=== PATIENT | male | born 1990 | race Two or more races ===

== ENCOUNTER 2025-09-12 16:36 | Inpatient (IN) | payer MEDICAID, SELFPAY ==
[2025-09-12 16:37] VITALS: BMI 36.5
[2025-09-12 16:48] VITALS: BP 155/82; PULSE 86; RESP 18; TEMP 36.9; O2SAT 99
--- NOTE | 2025-09-12 16:56 | XR_ITS ---
Examination: CTA carotids with intravenous contrast CTA brain, head with intravenous contrast. 2-D sagittal, coronal reconstructions. 3-D reconstructions. Exam date and time: September 12, 2025, 1839 hours INDICATIONS: Onset double vision beginning 3 days ago CTDI: vol (mGy) 31.2 DLP: (mGycm) 465 Technique: Multiple CTA axial brain, head carotid images post intravenous contrast injection 75 cc, [id number]. 2-D sagittal, coronal reconstructions. 3-D reconstructions, 3-D post processing including vascular maximum intensity projection images. Low dose protocols were performed. One or more of the following dose reduction techniques were used; automated exposure control, adjustment of the mA and/or KV according to patient size, use of iterative reconstruction technique. Findings: No common carotid carotid bifurcation or significant internal carotid artery stenoses Codominant vertebral arteries in the neck with no critical stenoses No cerebral large vessel arterial occlusions, thrombus, dissection or cerebral aneurysm IMPRESSION: No significant neck arterial stenoses No cerebral arterial occlusions or thrombus or cerebral aneurysms Consider brain MR I MRA without contrast follow-up
--- NOTE | 2025-09-12 16:57 | PD.EDRME ---
Rapid Medical Screening Exam [facility] Arrival date/time: 09/12/25 16:36 35-year-old male with no known medical history presents to the emergency room with a chief complaint of double vision x 3 days. Patient states when he closes one of his eyes his vision is normal but when they are both open his double vision does not go away. I have greeted and performed a focused initial assessment of this patient. A comprehensive ED assessment and evaluation of the patient, analysis of all test results, and completion of the medical decision making process will be conducted by additional ED providers. Chief Complaint: Eye Problems Vital signs: Vital Signs Temperature 98.5 F 09/12/25 16:48 Pulse Rate 86 09/12/25 16:48 Respiratory Rate 18 09/12/25 16:48 Blood Pressure 155/82 H 09/12/25 16:48 Pulse Oximetry (%) 99 09/12/25 16:48 Oxygen Delivery Method Room Air 09/12/25 16:48 Vital signs reviewed by provider: Yes Exam: Pupils are PERRLA EOMs are intact Patient is a GCS 15 alert and oriented x 3 Clinical Impression: CVA/TIA/
[2025-09-12 17:23] LABS: Glucose Estimated Average 114 mg/dL (80-131); Hemoglobin A1C 5.6 % Hgb (4.8-6.0)
[2025-09-12 17:27] VITALS: BP 160/96; PULSE 97; RESP 30; TEMP 36.7; O2SAT 97
[2025-09-12 17:30] LABS: Alanine Aminotransferase 55 U/L (10-49); Albumin, Serum 5.0 gm/dL (3.5-5.0); Albumin/Globulin Ratio 2.5 (1.2-2.2); Alkaline Phosphatase 77 U/L (46-116); Anion Gap 10 (7-16); Aspartate Amino Transferase 29 U/L (0-34); BUN/Creatinine Ratio 14 Ratio (12-20); Bilirubin,Total 0.4 mg/dL (0.3-1.2); Blood Urea Nitrogen 14 mg/dL (9-23); Calcium 9.4 mg/dL (8.3-10.6); Calcium (Corrected) 9.4 mg/dL (8.5-10.1); Carbon Dioxide 26.1 mMol/L (20.0-31.0); Chloride 105 mMol/L (98-107); Creatinine (Component) 1.0 mg/dL (0.6-1.3); Estimated Creatinine Clearance 124.5 mL/min (>60); Globulin 2.0 gm/dL (2.3-3.5); Glucose 114 mg/dL (74-106); Osmolality,Calculated 282 (275-295); Potassium 4.0 mMol/L (3.4-5.1); Sodium 141 mMol/L (136-145); Total Protein 7.0 gm/dL (5.7-8.2); eGFR > 60 See Note
--- NOTE | 2025-09-12 17:50 | EDNOTE_ITS ---
ED Eye Problem RME/HPI General Chief complaint: Eye Problems Stated complaint: DOUBLE VISION FOR 3 DAYS Time Seen by Provider: 09/12/25 17:01 Arrival date/time: 09/12/25 16:36 Limitations: no limitations RME / HPI RME / HPI Narrative: 09/12/25 16:36 35-year-old male with no known medical history presents to the emergency room with a chief complaint of double vision x 3 days. Patient states when he closes one of his eyes his vision is normal but when they are both open his double vision does not go away. I have greeted and performed a focused initial assessment of this patient. A comprehensive ED assessment and evaluation of the patient, analysis of all test results, and completion of the medical decision making process will be conducted by additional ED providers. DR. RIVERA MAIN ED EVALUATION: 35 year old male with no stated medical history presents to the ED for evaluation of double vision beginning 3 days ago after waking from sleep. States the double vision has remained constant since onset and only improved when I really try to focus . Patient states the night before going to sleep he was on his phone late at night. No history of similar symptoms. No headache. Patient mentioned he had bilateral eye surgery when he was 2-3 years old though does not recall the exact reason for the surgery. Exam: Pupils are PERRLA EOMs are intact Patient is a GCS 15 alert and oriented x 3 Impression: CVA/TIA/ Related Data Previous Rx's ?Medication ?Instructions ?Recorded aspirin 81 mg capsule 81 mg PO QDAY #30 caps 09/13 atorvastatin 40 mg tablet (Lipitor) 40 mg PO QPM #30 t abs 09/13/25 Allergies Allergy/AdvReac Type Severity Reaction Status Date / Time No Known Allergies Allergy Verified 09/12/25 16:38 Review of Systems Review of Systems Systems Reviewed: All systems reviewed, normal except as documented Past Medical History Social History SMOKING STATUS: Never smoker ED Exam General Limitations: Present no limitations General appearance: Present alert and in no apparent distress Head Head exam: Present atraumatic, normocephalic and normal inspection Eye Eye exam: Present PERRL, EOMI and other (Eyes to confrontation looks equal though with ROM on the horizontal plane there is palsy to the right medial aspect) ENT ENT exam: Present normal exam, normal oropharynx and mucous membranes moist Neck Neck exam: Present normal inspection, full ROM and trachea midline Chest Chest inspection: Present normal inspection and symmetric chest wall rise Respiratory Respiratory exam: Present normal lung sounds bilaterally Cardiovascular Cardiovascular exam: Present regular rate, normal rhythm and normal heart sounds Abdominal Exam Abdominal exam: Present soft and normal bowel sounds Extremities Exam Extremities exam: Present normal inspection and full ROM Back Exam Back exam: Present normal inspection and full ROM Neurological Exam Neurological exam: Present alert, oriented X3 and CN II-XII intact Psychiatric Psychiatric exam: Present normal affect and normal mood Skin Skin exam: Present warm, dry, intact and normal color Course Quality Measures none Orders Category Date Time Status Admit to Inpatient Status Routine Admission 09/13/25 00:56 Active Patient Condition Routine Admission 09/13/25 00:56 Ordered Activity as Tolerated Routine Care 09/13/25 00:57 Ordered COVID-19 Screening Questionnaire NOW Care 09/13/25 00:[address] Screening NOW Care 09/12/25 16:[address] Screening X1 Care 09/12/25 16:56 Completed Chief Vendor Quality NOW Care 09/12/25 18:00 Completed Continuous Pulse Oximetry NOW Care 09/12/25 18:00 Completed EKG (ED ONLY) *Do not use* NOW Care 09/12/25 18:00 Completed Insert IV NOW Care 09/12/25 17:33 Completed Insert IV NOW Care 09/12/25 18:00 Completed Notify provider NEEDED Care 09/13/25 00:56 Completed Sequential Compression Device QSHIFT Care 09/13/25 00:55 Completed Visual Acuity X1 Care 09/12/25 16:53 Completed Consult to Neurology / Tele-Neurology Stat Cons 09/12/25 17:56 Active Diet Regular Diet 09/13/[address] angio carotid w head w Stat Exams 09/12/25 16:[address] head/brain wo con Stat Exams 09/12/25 18:02 Completed EKG (ED Only) Stat Exams 09/12/25 18:00 Draft XR chest 1V portable Stat Exams 09/12/25 18:00 Completed A1C [Glycohemoglobin w (eAG)] Stat Lab 09/12/25 17:03 Completed CBC AM DRAW Lab 09/13/25 06:05 Completed CBC Stat Lab 09/12/25 17:03 Completed CMP [Comprehensive Metabolic Panel] AM DRAW Lab 09/13/25 06:05 Completed CMP [Comprehensive Metabolic Panel] Stat Lab 09/12/25 17:03 Completed Mag [Magnesium] AM DRAW Lab 09/13/25 06:05 Completed Partial Thromboplastin Time Stat Lab 09/12/25 17:03 Completed Phosphorous AM DRAW Lab 09/13/25 06:05 Completed Prothrombin Time with INR Stat Lab 09/12/25 17:03 Completed TSH [Thyroid Stimulating Hormone] Stat Lab 09/12/25 17:03 Completed Thyroid Stimulating Hormone AM DRAW Lab 09/13/25 06:05 Completed Urinalysis Stat Lab 09/12/25 18:27 Completed Acetaminophen Tab [Tylenol Tab] Med 09/13/25 00:55 Discontinued 650 mg PO Q6H PRN Docusate Sod [Colace] Med 09/13/25 09:00 Discontinued 100 mg PO QDAY Famotidine Inj [Pepcid Inj] Med 09/13/25 09:00 Discontinued 20 mg IVP Q12HR Ondansetron Inj [Zofran Inj] Med 09/13/25 00:55 Discontinued 4 mg IVP Q6H PRN Sodium Chloride 0.9% 1000 ml [Ns] 1,000 ml Med 09/12/25 18:00 Discontinued IV 100 mls/hr Code Status Routine Oth 09/13/25 00:55 Completed Oxygen Delivery NOW RT 09/12/25 18:00 Completed Vital Signs Vital signs: Vital Signs Temperature 98.5 F 09/12/25 16:48 Pulse Rate 86 09/12/25 16:48 Respiratory Rate 18 09/12/25 16:48 Blood Pressure 155/82 H 09/12/25 16:48 Pulse Oximetry (%) 99 09/12/25 16:48 Oxygen Delivery Method Room Air 09/12/25 16:48 Pulse ox is 99% on room air which is adequate. Eye MDM Narrative MDM Narrative:: Toyin Hurley am scribing for and in the presence of Dr. Rivera. 1800: Patient signed out to Dr. Ta pending teleneuro consultation, labs, and imaging. Patient data External records reviewed:: [facility] previous records Clinical information provided by:: patient Social determinants that could affect healthcare access:: none Patient has the following chronic illnesses:: None How is presenting disease/condition affected by chronic disease/condition?: no chronic disease Evaluation data The following diagnostics were reviewed and interpreted by me:: lab results and radiology exam(s) Lab and/or radiology exams considered but not ordered:: None Interpretation Summary: CBC and CMP are unremarkable Medications / Prescriptions Medications or Prescriptions considered but not ordered:: None Medication administrations:: Medication Administration History Discontinued Medications Acetaminophen (Acetaminophen 325 Mg Tablet) 650 mg PO Q6H PRN PRN Reason: Fever >100.4 or pain 1-3 Stop: 10/13/25 00:54 Aspirin (Aspirin Ec 81 Mg Tabec) 81 mg PO QDAY [facility] Stop: 10/13/25 08:59 Last Admin: 09/13/25 08:19 Dose: 81 mg Documented By: ROXY Atorvastatin Calcium (Atorvastatin Calcium 20 Mg Tablet) 40 mg PO HS SERGIO Stop: 10/13/25 20:59 Docusate Sodium (Docusate Sod 100 Mg Capsule) 100 mg PO QDAY SERGIO; Protocol Stop: 10/13/25 08:59 Last Admin: 09/13/25 08:21 Dose: Not Given Documented By: ROXY Non-Admin Reason: Patient Refused Famotidine (Famotidine Inj 10 Mg/Ml Vial 2 Ml) 20 mg IVP Q12HR [facility] Stop: 10/13/25 08:59 Last Admin: 09/13/25 08:20 Dose: 20 mg Documented By: ROXY Heparin Sodium (Porcine) (Heparin Sod Inj 5000 Unit/Ml Vial) 5,000 unit SC Q8HR SERGIO Stop: 09/27/25 06:29 Last Admin: 09/13/25 15:17 Dose: Not Given Documented By: ROXY Non-Admin Reason: Patient Refused Admin: 09/13/25 08:03 Dose: Not Given Documented By: ROXY Non-Admin Reason: Patient Refused Sodium Chloride (Ns) 1,000 mls @ 100 mls/hr IV .Q10H ONE Stop: 09/13/25 03:59 Last Infusion: 09/13/25 03:31 Dose: Infused Documented By: Admin: 09/12/25 18:21 Dose: 100 mls/hr Documented By: RYAN Ondansetron HCl (Ondansetron Inj 2 Mg/Ml Inj 2 Ml) 4 mg IVP Q6H PRN; Protocol PRN Reason: NAUSEA OR VOMITING Stop: 10/13/25 00:54 See above Consultations Consultation(s) initiated? (list below): No Diagnosis Eye Problem Differential Diagnosis: corneal abrasion and acute iritis Most likely diagnosis given after review of the tests above:: Diplopia Admission Indicated Admission indicated?: not indicated Explain why admission is indicated or not indicated:: Signed out pending final disposition Admission Request Was there a request for admission?: No Disposition Plan Disposition Plan: other (specify) (Care signed out to Dr. Ta ) Discharge Plan Plan Patient Disposition: Admit Acute Care w/in Hospital Patient condition on transfer: Stable Problem List Clinical Impression: Diplopia Patient/Caregiver Discharge Instructions Discharge Activity: resume usual activities
[2025-09-12 17:59] LABS: Basophils # (Auto) 0.1 Thou/mm3 (0.0-0.2); Basophils % (Auto) 1 % (0-2.5); Eosinophils # (Auto) 0.2 Thou/mm3 (0.0-0.5); Eosinophils % (Auto) 2 % (0-10); Hematocrit 45.9 % (41.0-53.0); Hemoglobin 15.6 g/dL (13.5-16.0); Immature Granulocytes Auto 0.03 Thou/mm3 (0.00-0.00); Lymphocytes # (Auto) 3.0 Thou/mm3 (1.0-4.8); Lymphocytes % (Auto) 31 % (10-50); Mean Corpuscular HGB Conc 34.0 g/dl (31.0-37.0); Mean Corpuscular Hemoglobin 28.1 pg (25.0-35.0); Mean Corpuscular Volume 83 fL (80-100); Monocytes # (Auto) 0.6 Thou/mm3 (0.0-0.8); Monocytes % (Auto) 6 % (0-12); Neutrophils # (Auto) 5.9 Thou/mm3 (1.8-7.7); Neutrophils % (Auto) 61 % (37-80); Nucleated Red Blood Cell # 0.00 Thou/mm3 (0.00-0.00); Nucleated Red Blood Cell % 0 /100 WBC (0); Platelet Count 165 Thou/mm3 (140-440); RDW Standard Deviation 39.7 fL (35.1-43.9); Red Blood Count 5.56 Miln/mm3 (4.50-5.90); White Blood Count 9.7 Thou/mm3 (3.8-10.6)
--- NOTE | 2025-09-12 18:00 | EKG_ITS ---
[facility] Test Date: 2025-09-12 Pat Name: DEANA JORDAN Department: Room: - Gender: Male Building Rental Manager: : 1990 Requested By: Naman Martínez Order Number: [id number] Reading MD: Naman Martínez Measurements Intervals [place] Rate: 77 P: 44 TN: 149 QRS: 1 QRSD: 76 T: 78 QT: 364 QTc: 414 Interpretive Statements SINUS RHYTHM NONSPECIFIC ST & T-WAVE ABNORMALITY No previous ECG available for comparison /store/S0/[id number]/[id number].pdf
--- NOTE | 2025-09-12 18:00 | XR_ITS ---
CLINICAL INDICATION: COUGH TECHNIQUE: XR chest 1V portable COMPARISON: None. FINDINGS: The cardiomediastinal silhouette is within normal limits. Hypoventilatory changes with otherwise no significant pleural-parenchymal abnormality. Mild asymmetric elevation of the right hemidiaphragm noted. No airspace opacities suggestive of pneumonia. No pulmonary edema. No mass detected. No pleural effusion or pneumothorax. No acute osseous abnormality detected. IMPRESSION: No radiographic evidence for acute cardiopulmonary abnormality.
--- NOTE | 2025-09-12 18:02 | XR_ITS ---
Examination: CT brain head without contrast. 2-D sagittal coronal reconstructions Date and time of exam: October 12, 2025 1839 hours INDICATIONS: Onset double vision beginning 3 days ago CTDI: vol (mGy): 52 DLP: (mGycm): 998 Technique: Multiple CT axial sections of the brain have been obtained, 5 mm slice thickness. Contrast has not been administered. 2-D sagittal, coronal reconstructions have been obtained Low dose protocols were performed. One or more of the following dose reduction techniques were used; automated exposure control, adjustment of the mA and/or KV according to patient size, use of iterative reconstruction technique. Findings: No significant ventricular enlargement. Intra-axial or extra-axial hemorrhage density is not seen. No mass effect or midline shift Basal cisterns are not remarkable. Fourth ventricle is midline. Cranial vault intact. Impression: Negative for acute hemorrhage, mass effect or midline shift Advise clinical correlation and follow-up accordingly
[2025-09-12 18:14] VITALS: PULSE 80; RESP 15; RESP 95
[2025-09-12] MEDS: SODIUM CHLORIDE 0.9% 1000 ML 1,000 ML 100 ML IV (18:21)
--- NOTE | 2025-09-12 18:28 | PD.EDADDENDU ---
Emergency Room Addendum Addendum Narrative: 1800: Care assumed from Dr. Weinstein (emergency physician). Past medical, surgical, social and family history reviewed. Vitals and home medications reviewed. Results and treatment plan discussed. I will assume the care of the patient at this time and will follow the patient, pending labs. The following addendum documentation note is intended to reflect any pending information, findings, or radiology results not included in the patient?s initial chart by the previous shift scribe. 21:24 - Asked to assume care of this pleasant 35 y/o male with a 3 day history of binocular diplopia which resolves upon closure of 1 eye. No recent head trauma or antecedent illness. Clinical examination demonstrates mild left abducin nerve's palsy which tends to worsen with confrontation. Patient underwent extensive workup, including metabolic profile, CT, and CTA, which were all essentially unremarkable. Diagnostic considerations include Graves disease, myasthenia gravis, or internuclear abdominoplastia. Will consult neuro-telli to aid in disposition. Telli-neurologist consulted. Recommends patient be admitted, pending MRI in the morning, and possible further CVA work-up. 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 00:05 - Telli-neurologist made aware of the patient?s HPI, PMHx, lab and/or radiology results. Discussed treatment plan. Recommends patient be admitted pending MRI in the morning and possible further CVA work-up. Will consult an admission to the hospitalist. 00:08 - Discussed with hospitalist team for admission. Reviewed the patient?s HPI, PMHx, lab and/or radiology results. Discussed treatment plan. Will consult an admission to the hospitalist.
[2025-09-12 18:51] LABS: Collection Type, Urine Clean Catch; Squamous Epithelial Cell,Urine 0 /hpf (0-5)
[2025-09-12 18:59] LABS: Bilirubin,Urine Negative (Negative); Blood,Urine Negative (Negative); Clarity,Urine Clear (Clear/Hazy); Color,Urine Lt-Yellow (Lt Yel-Yel); Glucose, Urine Negative (Negative); Ketones,Urine Negative (Negative); Leukocyte Esterase,Urine Negative (Negative); Nitrite,Urine Negative (Negative); PH,Urine 6.0 (5.0-7.0); Protein,Urine Negative (Neg - Trace); RBC,Urine 1 /hpf (0-3); Specific Gravity,Urine 1.029 (1.001-1.035); Urobilinogen,Urine Negative mg/dL (0.0-1.0); WBC,Urine < 1 /hpf (0-5)
[2025-09-12 19:12] LABS: INR 1.0 (0.9-1.3); Partial Thromboplastin Time 27.6 Seconds (22.0-36.0); Prothrombin Time 10.3 Seconds (9.0-12.2)
--- NOTE | 2025-09-12 21:49 | PC.NURSE ---
Case Consult 09/12/2025 21:49:17 PST Case # [id number] has been created.
[2025-09-12 21:58] LABS: Thyroid Stimulating Hormone 1.31 uIU/mL (0.55-4.78)
[2025-09-12 22:21] VITALS: BP 116/89; PULSE 73; RESP 18; O2SAT 97
[2025-09-12 23:34] VITALS: BP 153/87; PULSE 79; RESP 15; O2SAT 97
--- NOTE | 2025-09-13 | XR_ITS ---
Examinations: MRI Brain without intravenous contrast. MRA brain without intravenous contrast. MRA carotids without intravenous contrast 3-D vascular reconstructions Date and time of exam: September 13, 2025, 0955 hours INDICATIONS: Onset double vision and dizziness beginning 4 days ago, clinical diagnosis stroke Technique: Multiple axial and sagittal images of the brain have been obtained MRA brain carotid images without contrast obtained, including 3-D postprocessing, vascular maximum intensity projection images Findings: Sell[place] is not enlarged. The optic chiasm and infundibular stalk are not remarkable. Prepontine and interpeduncular cisterns are not enlarged. No localized enlargement of the medulla or nick. Fourth ventricle and cerebellar tonsils normal in position. Subacute hemorrhage is not seen. Fourth ventricle is midline. Mass in the cerebellopontine angle region is not evident. 7th and 8th nerve complexes exhibits symmetry. Globes are symmetrical with no retro-orbital mass. Increased white matter signal not seen Diffusion-weighted images demonstrate no focus of restricted diffusion Mass-effect upon the ventricular system is not identified. MRA carotid images no significant stenoses. MRA brain images no large vessel occlusions Impression: Negative for acute hemorrhage mass effect or midline shift No acute infarct No MR findings diagnostic for demyelinating disease
--- NOTE | 2025-09-13 00:59 | PD.RESHP ---
Documentation for date of: 09/13/25 HPI History of Present Illness History of present illness: 35 y/o male with PMHx of strabismus requiring surgery at age 4 now presenting with a 3 day history of binocular diplopia which resolves upon closure of 1 eye. No recent head trauma or antecedent illness. Clinical examination by the ED attending demonstrates mild left abducen nerve's palsy which tends to worsen with confrontation. Patient admitted for MRI in the morning per teleneuro recommendation. ED Course Summary: Vitals: BP 155/82 HR 86 RR 18 T 98.5F O2 99% RA Labs: CBC wnl. coags wnl, CMP wnl glucose 114 ALT 55, UA remarkably clean Imaging: CTA unremarkable, CXR no acute cardiopulmonary abnormality, Head CT unremarkable. EKG sinus rhythm QTc 414 Treatment: NS 1L Consults: Teleneuro recommended MRI for stroke r/o Upon initial examination patient states he woke up with binocular diplopia that resolved when he would put one hand over each of his eyes. He does not report any symptoms of weakness, unilateral or bilateral, no sensory loss, numbness, tingling, or slurring of his words. His diplopia has since resolved. He has not been to a doctor in 3 years following his colonoscopy that came back clean. He does not have any positional symptoms such as a headache with standing or sitting, he has no nausea, and no light headedness. He recounts that he had ocular surgery as a child that he believes was due to strabismus. His daughter has a similar issue with strabismus that they are treating with an eye patch. Code: Full Insulin: None Medical Hx: None Medications: None Allergies: KNA Surgical history: Age 2-3 years oid had surgery for layer on eye maybe strabismus Fhx: Daughter has strabismus requiring her to wear eye patch Living: With and kids Work: [employer] Alcohol: 1 beer/weekend Cigarettes/tobacco: None Recreational drugs: None Patient admitted for: MRI work up for stroke r/o All 12 systems reviewed and were negative except otherwise stated in HPI. Exam Vital Signs Temp Pulse Resp BP Pulse Ox O2 Del Method 98.1 F 79 15 153/87 H 97 Room Air 09/12/25 17:27 09/12/25 23:34 09/12/25 23:34 09/12/25 23:34 09/12/25 23:34 09/12/25 23:34 Narrative Exam GENERAL APPEARANCE: AOx4. NAD, activity normal for age, well developed/ well nourished, no cyanosis, pallor, or diaphoresis. HEENT: Normocephalic atraumatic, no facial trauma, neck is supple. Lids/conjunctiva normal. Mucous membranes moist, nares normal, lips/teeth normal uvula midline without oral pharyngeal erythema, exudate or swelling TMs normal bilaterally. No lymphangitis/lymphedema. Bilateral eye abduction intact. Improved diplopia with covering individual eyes CARDIAC: Regular rate and rhythm, S1+S2 heard. No murmurs, rubs, or gallops noted RESPIRATORY: respiratory effort normal, speaks in full sentences, no tripod position, no accessory muscle use. Lungs clear to auscultation without rhonchi, wheezes, rales ABDOMINAL: NBS. Soft, ND/NT. No evidence of fluid wave. No pulsatile masses on exam, rebound tenderness, Chase sign or pain over Mcburney's point. MUSCLES/EXTREMITIES: No abnormal range of motion, no swelling. DERM: Warm, pink and dry. No rashes, dermatoses, petechiae or lesions. NEUROLOGICAL: Speech is clear and appropriate. Normal level of consciousness. Gait and coordination are normal. 5/5 strength in all extremities. PSYCH: Normal mood and affect. Judgement/competence is appropriate Detailed Eye Exam Visual acuity: Visual Acuity Visual Acuity Uncorrected [ 20/20 Bilateral] Results: Labs 09/13/25 06:05 09/13/25 06:05 Labs: Short CBC 09/12/25 Range/Units 17:03 WBC 9.7 (3.8-10.6) Thou/mm3 Hgb 15.6 (13.5-16.0) g/dL Hct 45.9 (41.0-53.0) % Plt Count 165 (140-440) Thou/mm3 BMP 09/12/25 17:03 Sodium 141 Potassium 4.0 Chloride 105 Carbon Dioxide 26.1 BUN 14 Creatinine 1.0 Glucose 114 H Calcium 9.4 Liver Function 09/12/25 Range/Units 17:03 Total Bilirubin 0.4 (0.3-1.2) mg/dL AST 29 (0-34) U/L ALT 55 H (10-49) U/L Alkaline Phosphatase 77 (46-116) U/L Albumin 5.0 (3.5-5.0) gm/dL Urine 09/12/25 Range/Units 18:27 Urine Color Lt-Yellow (Lt Yel-Yel) Urine Clarity Clear (Clear/Hazy) Urine pH 6.0 (5.0-7.0) Ur Specific [place] 1.029 (1.001-1.035) Urine Protein Negative (Neg - Trace) Urine Glucose (UA) Negative (Negative) Quality Measures Quality Measures VTE prophylaxis Medications Home Medications and Allergies Allergies Allergy/AdvReac Type Severity Reaction Status Date / Time No Known Allergies Allergy Verified 09/12/25 16:38 Visit Medications Sodium Chloride (Ns) 1,000 mls @ 100 mls/hr IV .Q10H ONE Stop: 09/13/25 03:59 Last Admin: 09/12/25 18:21 Dose: 100 mls/hr Assessment & Plan Plan 35 y/o male with PMHx of strabismus requiring surgery at age 4 now presenting with a 3 day history of binocular diplopia which resolves upon closure of 1 eye. No recent head trauma or antecedent illness. Clinical examination by the ED attending demonstrates mild left abducen nerve's palsy which tends to worsen with confrontation. Patient admitted for MRI in the morning per teleneuro recommendation. #Stroke like symptoms #Abducens nerve palsy - resolved #Diplopia DDx: Vascular (Idiabetes, HTN) vs nonvasular (trauma compression) most likely light trauma from sleeping on side of face resulting muscle weakness. Can also consider autoimmune myasthenia gravis, however very unlikely with zero other symptoms of weakness. Diplopia in Am has since resolved. Symptoms initially improved with covering of unilateral eye. Patient ahs self reported histopry of strabismus as a child requiring eye surgery and his daughter had strabismus treated with an eye pathc. Imaging is unremarkable. Admitted per tele-neuro for MRI, stroke r/o and evaluation of abducens nerve palsy. Plan: - ASCVD score:____ - Neuro consulted, recs appreciated - MRI ordered: ____ - Head of bed 30 degrees - Permissive HTN <220 or end organ damage - If TPA pushed keep BP systolic >180 - ECHO w/ bubble study: - TSH: - Lipid panel: - A1C:___ Health Maintenance: Code status: Full DVT prophylaxis: SCDs GI prophylaxis: Famotidine Diet: Full Leal: None Lines: PIV Supplemental O2: None Disposition: Med tele for stroke r/o pending MRI, most likely abducens nerve palsy Patient seen and reviewed with attending Dr. Bonner. Note written by Steven Haji MD PGY-1 Attending Provider Attestation/Addendum After examination of the patient and review of the clinical data I feel that this patient needs admission to the hospital for further treatment/evaluation. Plan of care discussed with patient and is in agreement. I Kumar Bonner MD, attest that I was physically present for morgan portions of evaluation, and examined patient, labs and imagings and plan of care were discussed with IM residents team, and I agree with the findings and plans documented above.
[2025-09-13 01:31] VITALS: PULSE 79; RESP 18; RESP 99
--- NOTE | 2025-09-13 03:39 | PC.NURSE ---
REPORT GIVEN TO CJ MAYO AT TELE.
[2025-09-13 04:00] VITALS: BP 129/81; PULSE 82; RESP 18; TEMP 36.3; O2SAT 95
[2025-09-13 04:13] VITALS: BMI 36.6
[2025-09-13 07:05] LABS: Basophils # (Auto) 0.0 Thou/mm3 (0.0-0.2); Basophils % (Auto) 1 % (0-2.5); Eosinophils # (Auto) 0.2 Thou/mm3 (0.0-0.5); Eosinophils % (Auto) 2 % (0-10); Hematocrit 42.5 % (41.0-53.0); Hemoglobin 14.6 g/dL (13.5-16.0); Immature Granulocytes Auto 0.02 Thou/mm3 (0.00-0.00); Lymphocytes # (Auto) 2.7 Thou/mm3 (1.0-4.8); Lymphocytes % (Auto) 35 % (10-50); Mean Corpuscular HGB Conc 34.4 g/dl (31.0-37.0); Mean Corpuscular Hemoglobin 28.5 pg (25.0-35.0); Mean Corpuscular Volume 83 fL (80-100); Monocytes # (Auto) 0.4 Thou/mm3 (0.0-0.8); Monocytes % (Auto) 5 % (0-12); Neutrophils # (Auto) 4.4 Thou/mm3 (1.8-7.7); Neutrophils % (Auto) 57 % (37-80); Nucleated Red Blood Cell # 0.00 Thou/mm3 (0.00-0.00); Nucleated Red Blood Cell % 0 /100 WBC (0); Platelet Count 143 Thou/mm3 (140-440); RDW Standard Deviation 39.7 fL (35.1-43.9); Red Blood Count 5.13 Miln/mm3 (4.50-5.90); White Blood Count 7.7 Thou/mm3 (3.8-10.6)
[2025-09-13 07:17] LABS: Alanine Aminotransferase 45 U/L (10-49); Albumin, Serum 4.3 gm/dL (3.5-5.0); Albumin/Globulin Ratio 2.3 (1.2-2.2); Alkaline Phosphatase 63 U/L (46-116); Anion Gap 9 (7-16); Aspartate Amino Transferase 27 U/L (0-34); BUN/Creatinine Ratio 13 Ratio (12-20); Bilirubin,Total 0.4 mg/dL (0.3-1.2); Blood Urea Nitrogen 13 mg/dL (9-23); Calcium 8.9 mg/dL (8.3-10.6); Calcium (Corrected) 8.9 mg/dL (8.5-10.1); Carbon Dioxide 25.5 mMol/L (20.0-31.0); Chloride 108 mMol/L (98-107); Creatinine (Component) 1.0 mg/dL (0.6-1.3); Estimated Creatinine Clearance 124.7 mL/min (>60); Globulin 1.9 gm/dL (2.3-3.5); Glucose 104 mg/dL (74-106); Magnesium 2.0 mg/dL (1.6-2.6); Osmolality,Calculated 283 (275-295); Phosphorous 4.4 mg/dL (2.4-5.1); Potassium 3.9 mMol/L (3.4-5.1); Sodium 142 mMol/L (136-145); Thyroid Stimulating Hormone 2.50 uIU/mL (0.55-4.78); Total Protein 6.2 gm/dL (5.7-8.2); eGFR > 60 See Note
[2025-09-13 07:45] VITALS: BP 127/77; PULSE 75; RESP 18; TEMP 37.2; O2SAT 95
[2025-09-13 08:00] VITALS: PULSE 81
[2025-09-13] MEDS: ASPIRIN EC 81 MG TABEC PO (08:19)
[2025-09-13] MEDS: FAMOTIDINE INJ 10 MG/ML VIAL 2 ML 20 MG IVP (08:20)
[2025-09-13 08:58] LABS: Amphetamine/Methamp Scrn,U Negative (Negative); Barbiturate Screen,Urine Negative (Negative); Benzodiazepines Screen,Urine Negative (Negative); Benzoylecgonine Screen, Ur Negative (Negative); Fentanyl Screen,Urine Negative (Negative); Opiate Screen,Urine Negative (Negative); THC Screen,Urine Negative (Negative)
[2025-09-13 10:21] LABS: Syphilis Nonreactive (Nonreactive)
--- NOTE | 2025-09-13 10:48 | PC.PT ---
09/13/2025 PT eval attempted @ 1004 but patient off floor at MRI
[2025-09-13 12:00] VITALS: BP 137/96; PULSE 70; PULSE 83; RESP 24; TEMP 36.8; O2SAT 96
--- NOTE | 2025-09-13 12:21 | ESDS_ITS ---
<Statement entered by Enio Powers MD - 09/25/25 07:58> I reviewed above note and agree with findings and plans. I have also personally examined the patient with medicine team and went over assessment and plan with medical team including internal communications manager and resident physician. Planned Discharge Date 09/13/25 DS: Providers Provider Date of admission: 09/13/25 00:56 Primary care physician: Physician No Primary/Family Admitting Provider: Kumar Bonner MD Attending Provider on Admission: Kumar Bonner MD Consults: 09/12/25 17:56 Consult to Neurology / Tele-Neurology Stat Comment: Consulting Provider: [facility] 09/13/25 06:21 Consult to Neurology / Tele-Neurology Routine Comment: Consulting Provider: Bernardo Enrique 09/13/25 06:30 Referral Physical Therapy Routine Comment: Physician Instructions: Referral Speech Therapy Routine Comment: Attending Provider on DC: Collin Aguilar MD Discharging Provider: Collin Aguilar MD DS: Diagnosis Problem List Completed Was Problem List Reviewed/Reconciled?: Yes Hospital Course Hospital Course Hospital course: 35-year-old male was admitted for evaluation of binocular diplopia that had been present for three days, described as double vision that resolved with closure of either eye. 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 The patient denied headache, weakness, speech changes, or sensory loss. Initial workup in the ED included CT head and CTA head/neck, both unremarkable, and labs (CBC, CMP, coags, TSH, A1c) all within normal limits. MRI brain was performed during hospitalization and showed no acute infarct or structural abnormality, effectively ruling out cerebrovascular etiology. Teleneurology was consulted and recommended MRI for stroke rule out, initiation of aspirin and statin therapy, and outpatient echocardiogram. During admission, the patient?s symptoms continued to improve. By discharge, he denied diplopia at rest, had no pain with extraocular movements, and exhibited full extraocular motion. 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 Given that he has not seen an political organizer in several years, he may simply require updated corrective lenses. The patient remained hemodynamically stable throughout admission with no recurrent neurological symptoms. Diagnosis during admission: #Abducens nerve palsy versus TIA #Diplopia (resolved) #History of childhood strabismus Discharge instructions: -Follow up with Ophthalmology within 1 week for full eye evaluation and possible prescription for corrective lenses. -Maintain hydration and avoid sudden positional changes if dizziness recurs. -Continue aspirin 81 mg and atorvastatin 40 mg nightly as prescribed and follow up with a neurologist after discharge regarding continuation of medication. -Follow up with primary care physician to schedule outpatient echocardiogram. -Return to ED if new neurological symptoms develop (e.g., recurrent double vision, weakness, numbness, speech changes, or severe headache). ----- Plan discussed with attending physician Dr. Priya Aguilar MD PGY-1 Internal Medicine Time Spent with Patient Time attestation: Total time spent providing and/or coordinating discharge services: Time spent: Greater than 30 minutes Exam Vital Signs Temp Pulse Resp BP Pulse Ox O2 Del Method 98.9 F 75 18 127/77 95 Room Air 09/13/25 07:45 09/13/25 07:45 09/13/25 07:45 09/13/25 07:45 09/13/25 07:45 09/13/25 07:45 Narrative Exam General: Alert, oriented ?4, in no acute distress HEENT: Normocephalic, atraumatic; pupils equal, round, reactive to light; EOMI with no diplopia at rest; no facial asymmetry Cardiac: Regular rate and rhythm, no murmurs, rubs, or gallops Respiratory: Lungs clear to auscultation bilaterally; no wheezes, rales, or rhonchi Abdomen: Soft, nontender, nondistended; normal bowel sounds Extremities: No edema, normal ROM Neuro: Cranial nerves II?XII grossly intact; 5/5 strength throughout; normal sensation and coordination; gait steady Psych: Normal mood and affect Detailed Eye Exam Visual acuity: Visual Acuity Visual Acuity Uncorrected [ 20/20 Bilateral] Discharge Plan Plan Patient Disposition: HOME (Self Care) Patient condition on transfer: Stable Care Plan Goals: Discharge Instructions: * Follow up with Ophthalmology within 1 week for full eye evaluation and possible prescription for corrective lenses. * Maintain hydration and avoid sudden positional changes if dizziness recurs. * Continue aspirin 81 mg and atorvastatin 40 mg nightly as prescribed and follow up with a neurologist after discharge regarding continuation of medication. * Follow up with primary care physician to schedule outpatient echocardiogram. * Return to ED if new neurological symptoms develop (e.g., recurrent double vision, weakness, numbness, speech changes, or severe headache). Prescriptions/Referrals Prescriptions/Med Rec: New aspirin 81 mg capsule 81 mg PO QDAY Qty: 30 1RF atorvastatin [Lipitor] 40 mg tablet 40 mg PO HS Qty: 30 2RF Referrals: No Primary/Family,Physician [Primary Care Provider] Patient/Caregiver Discharge Instructions Discharge Activity: resume usual activities Education Materials: What Is a TIA?, Strabismus and Amblyopia An ..., Strabismus: Causes and Treatments, ED Blurred Vision Print Language: Stateless Stand Alone Forms: [employer] Award Info., Patient Portal Info Letter Discharge Order Discharge Orders: Discharge (Routine); Ordered 09/13/25 Ordered By: Sid Yi Quality Discharge Quality Measures VTE prophylaxis
[2025-09-13 15:41] VITALS: BP 127/77; PULSE 75; RESP 18; TEMP 37.2; O2SAT 95
--- NOTE | 2025-09-13 16:56 | PD.TNEUROPRO ---
Tele Neuro Progress Note Progress Note Date 09/13/25 [facility] Tele[facility]urology Consult Services Routine Consult Follow-Up Patient Name:???DEANA JORDAN Date of :???1990 Identification Number:??? Date of Service:???09/13/2025 15:26:15 Diagnosis?H53.2 - Diplopia Impression 35 year old male with no PMH presents with 3 days of sudden onset double vision not associated with headache dizziness or any other focal symptoms. Horizontal diplopia and worse on the right. Neurologic exam, possible sixth cranial however this is difficult to discern via tele examination. ddx: re-emergence of childhood strabismus vs partial ischemic 6th nerve palsy recommend aspirin 81mg daily recommend screen/treat for HAILY upon discharge, 30 day holter upon discharge recommend fu with ophthalmology for full evaluation, obtain clearance to drive overall neurologic eval is reassuring - fu with neurology in 3-4 weeks - fu with PCP in 1 week signing off ? Our recommendations are outlined below Disposition :Neurology will sign off. Reconsult if Needed.Outpatient Neurology follow up in 3-6 weeks Subjective he did have vision surgery when he was a child but his mother is not sure how to explain it, his daughter has strabismus; he feels that when he looks at something its skewed for a second then will readjust- has been happening last 4 days Imaging MRI brain- no mass, no demyelination, no stroke; CTA H/N- no aneurysm ? Examination 1A: Level of Consciousness - Alert; keenly responsive?+ 0 1B: Ask Month and Age - Both Questions Right?+ 0 1C: Blink Eyes & Squeeze Hands - Performs Both Tasks?+ 0 2: Test Horizontal Extraocular Movements - Normal?+ 0 3: Test Visual [place] - No Visual Loss?+ 0 4: Test Facial Palsy (Use Grimace if Obtunded) - Normal symmetry?+ 0 5A: Test Left Arm Motor Drift - No Drift for 10 Seconds?+ 0 5B: Test Right Arm Motor Drift - No Drift for 10 Seconds?+ 0 6A: Test Left Leg Motor Drift - No Drift for 5 Seconds?+ 0 6B: Test Right Leg Motor Drift - No Drift for 5 Seconds?+ 0 7: Test Limb Ataxia (FNF/Heel-Gómez) - No Ataxia?+ 0 8: Test Sensation - Normal; No sensory loss?+ 0 9: Test Language/Aphasia - Normal; No aphasia?+ 0 10: Test Dysarthria - Normal?+ 0 11: Test Extinction/Inattention - No abnormality?+ 0 NIHSS Score:?0 NIHSS Free Text :?No CN deficits at this time on exam ? This consult was conducted in real time using interactive audio and video technology. Patient was informed of the technology being used for this visit and agreed to proceed. Patient located in hospital and provider located at home/office setting. Telehealth Neurology consultation was provided. I spent 35 minutes providing telehealth care. This includes time spent for face to face visit via telemedicine, review of medical records, imaging studies and discussion of findings with providers, the patient and/or family. Dr Silvana Hinojosa [facility] For Inpatient follow-up with [facility] physician please call [facility] at . As we are not an outpatient service for any post hospital discharge needs please contact the hospital for assistance. If you have any questions for the [facility] physicians or need to reconsult for clinical or diagnostic changes please contact us via [facility] at Signature :?Silvana Hinojosa ? Most Recent Vital Signs Last Vital Signs Temp 98.9 F 09/13/25 15:41 Pulse 75 09/13/25 15:41 Resp 18 09/13/25 15:41 BP 127/77 09/13/25 15:41 Pulse Ox 95 09/13/25 15:41 O2 Del Method Room Air 09/13/25 15:41 Laboratory-Coagulation Panel PT 10.3 Seconds (9.0-12.2) 09/12/25 17:03 INR 1.0 (0.9-1.3) 09/12/25 17:03 APTT 27.6 Seconds (22.0-36.0) 09/12/25 17:03
[2025-09-14 19:11] LABS: Vitamin B12 228 pg/mL (211-911)
== END 2025-09-13 16:22 | disposition home or self-care (01) | DRG 82 ==
LOC: SERX 18:36 → SERHOLD 09-13 01:21 → S2NX 09-13 03:58
PROVIDERS: Family Medicine; Nurse Practitioner Family; Admitting Provider Student in an Organized Health Care Education/Training Program; Emergency Provider Emergency Medicine; Visit Provider Student in an Organized Health Care Education/Training Program
DX: H49.22 Sixth [abducent] nerve palsy, left eye (principal)
CPT/HCPCS: 36415; 70450; 70496; 70498; 70544; 71045; 80053; 80307; 81001; 82607; 83036; 83735; 84100; 84443; 85025; 85610; 85730; 86780; 92610; 93005; 96361; 96374; 99284; A4649; J3490; J7030; Q9967; A9270